=== PATIENT | male | born 1955 | race Caucasian/White ===

== ENCOUNTER 2016-04-19 10:44 | Outpatient (CLI) | payer MEDICAID ==
[~2016-04-19] VITALS: Ht 190.5 cm; Wt 91.8 kg
--- NOTE | ~2016-04-19 | HEMODYNAMI ---
PATIENT:CHRIS HALL MEDICAL RECORD: [id number] : 55 LOCATION:[facility] ADMISSION DATE: 04/19/16 Generatedon:04/19/201614:20 Patient name: CHRIS HALL Patient #: [id number] : 1955 Date of study: 04/19/2016 Page: Of Hemodynamic Procedure Report Patient Data Patient Demographics Procedure consent was obtained First Name: CHRIS Gender: Male Last Name: RAFAEL : 1955 Middle Initial: R Age: 61 year(s) Patient #: [id number] Race: SSN: [id number] Additional ID: [id number] Contact details Address: [address] [place] [address] State: [place] City: [facility] Zip code: [address] Past Medical History Allergies: No known allergies Admission Admission Data Admission Date: 04/19/2016 Admission Time: 10:44 Lab Results Lab Result Date: 04/19/2016 Lab Result Time: 0:00 Biochemistry Name Units Result Min Max BUN mg/dl 20 --(----)*- 7 18 Creatinine mg/dl 1.1 --(--*-)-- 0.6 1.3 CBC Name Units Result Min Max Hemoglobin g/dl 15.2 --(-*--)-- 13.5 17.5 Procedure Procedure Types Cath Procedure PCI Procedure Coronary Stent Initial Procedure Description Procedure Date Procedure Date: 04/19/2016 Procedure Start Time: 14:06 Procedure End Time: 14:16 Procedure Staff Name Function Yunior Olsen MD Performing Physician Brynn Mckeon RT Scrub Nicky Cabrera RN Nurse Raul Skaggs RT Butcher [employer] Vick Morales RT Monitor Procedure Data Cath Procedure Fluoroscopy Diagnostic fluoroscopy Total fluoroscopy Time: 1.8 time: 1.8 min min Diagnostic fluoroscopy Total fluoroscopy dose: 212 dose: 212 mGy mGy Contrast Material Contrast Material Type Amount (ml) Isovue 300 39 Entry Location Entry Primary Successful Side Size Upsize Upsize Entry Closure Succes sful Closure Location (Fr) 1 (Fr) 2 (Fr) Remarks Device Remarks Femoral Left 6 Fr Exoseal artery Short Procedure Complications No complications Procedure Medications Medication Administration Route Dosage Oxygen NC 2 l/min Heparin Flush Bag added to field 2 bags (1000units/500ml NS) Lidocaine 2% added to field 20 Benadryl I.V. 50 mg Versed I.V. 1 mg Fentanyl I.V. 50 mcg Versed I.V. 1 mg Fentanyl I.V. 50 mcg Heparin Bolus I.V. 5000 units Versed I.V. 1 mg Hemodynamics Rest HGB: 15.2 (g/dl) Heart Rate: 72 (bpm) Snapshots Pre Cath Intra NCS Post Cath Vital Signs Time Heart Resp SPO2 NIBP (mmHg) Rhythm Pain Sedation Rate (ipm) (%) Status Level (bpm) 13:51:36 73 16 99 143/94(125) NSR 0 (11) 10(A) , No pain 13:55:50 74 15 100 134/97(119) NSR 0 (11) 10(A) , No pain 14:00:00 75 16 99 139/94(127) NSR 0 (11) 10(A) , No pain 14:04:16 71 15 96 131/81(108) NSR 0 (11) 9(A) , No pain 14:08:26 69 15 96 120/88(101) NSR 0 (11) 9(A) , No pain 14:12:34 77 15 98 133/83(109) NSR 0 (11) 9(A) , No pain 14:14:34 77 16 96 126/75(95) NSR 0 (11) 9(A) , No pain Medications Time Medication Route Dose Verified Delivered Reason Notes Effectiveness by by 13:51:33 Oxygen NC 2 Yunior Nicky Per physician l/min [facility] Cabrera RN, MD 13:51:41 Heparin Flush added 2 Yunior Yunior used for Bag to bags [facility] procedure (1000units/500ml field MD SALDANA NS) 13:51:48 Lidocaine 2% added 20ml Yunior Browneory used for to [facility] procedure field MD SALDANA 13:51:56 Benadryl I.V. 50 mg Yunior Nicky Per physician [facility] Cabrera RN, MD 14:00:11 Versed I.V. 1 mg Yunior Nicky for sedation [facility] Cabrera RN, MD 14:00:17 Fentanyl I.V. 50 Yunior Nicky for sedation mcg [facility] Cabrera RN, MD 14:02:39 Versed I.V. 1 mg Yunior Nicky for sedation [facility] Cabrera RN, MD 14:02:43 Fentanyl I.V. 50 Yunior Nicky for sedation mcg [facility] Cabrera RN, MD 14:04:10 Versed I.V. 1 mg Yunior Nicky for sedation [facility] Cabrera RN, MD 14:06:48 Heparin Bolus I.V. 5000 Yunior Nicky for dose units [facility] Cabrera RN anticoagulation verified MD david patel Procedure Log Time Note 13:37:35 Raul Skaggs RT(R) sent for patient. Start room use. 13:41:47 Time tracking: Regular hours 13:41:52 Plan of Care:Hemodynamics will remain stable., Cardiac rhythm will remain stable., Comfort level will be maintained., Respiratory function will remain adequate., Patient/ family verbilizes understanding of procedure., Procedure tolerated without complication., Recovers from procedure without complications.. 13:41:58 Patient received from Outpatients to [facility] Alert and oriented. Tansferred to table in Supine position. 13:41:59 Warm blankets applied, and hu hugger turned on for patient comfort. 13:42:00 Correct patient and procedure confirmed by team. 13:42:02 Signed procedure consent form obtained from patient. 13:42:02 ECG and BP/O2 sat monitors applied to patient. 13:42:03 Full Disclosure recording started 13:50:20 Vital chart was started 13:51:33 Oxygen 2 l/min NC was given by Nicky Cabrera RN; Per physician; 13:51:41 Heparin Flush Bag (1000units/500ml NS) 2 bags added to field was given by Yunior Olsen MD; used for procedure; 13:51:48 Lidocaine 2% 20ml vial added to field was given by Yunior Olsen MD; used for procedure; 13:51:56 Benadryl 50 mg I.V. was given by Nicky Metcalfe RN; Per physician; 13:55:52 Vick Morales RT(R) was relieved by Raul Skaggs RT(R) as monitoring person 13:56:15 Baseline sample Acquired. 13:56:18 Rhythm: sinus rhythm 13:56:26 H&P Date Dictated: 04/19/2016 Within 30 days and on chart., H&P Addendum completed by physician on day of procedure. (MUST COMPLETE FOR ALL OUTPATIENTS). 13:56:27 Pre-procedure instructions explained to patient. 13:56:27 Pre-op teaching completed and patient verbalized understanding. 13:56:29 Family in waiting room. 13:56:30 Patient NPO since Midnight. 13:56:40 Patient allergic to No known allergies 13:56:42 Is the patient allergic to Iodine/contrast media? No. 13:56:47 Is patient on blood thinner?Yes 13:56:50 ACC The patient was administered the following blood thiners within the last 24 hours: ACCPlavix 13:56:52 Patient diabetic? No. 13:56:54 ----Pre-sedation anethsthesia assessment.---- 13:56:56 Previous problem with sedation/anesthesia? No ? 13:56:57 Snore? Yes 13:56:58 Sleep apnea? No 13:56:59 Deviated septum? No 13:57:00 Opens mouth fully? Yes 13:57:04 Sticks out tongue? Yes 13:57:10 Airway obstruction? N/A ? 13:57:12 Airway obstruction? No ? 13:57:14 Dentures? No ? 13:57:18 Pre procedure: left dorsailis pedis pulse 1+ Palpable, but thready & weak; easily obliterated 13:57:21 Patient pain scale 0/10 ?. 13:57:29 IV patent on arrival in left wrist with 0.9% NaCl at 10ml/hr. 13:58:53 Left groin area was prepped with chlora-prep and draped in sterile fashion 13:58:54 Alarms reviewed by R. N. 13:58:54 Sharps counted by scrub and verified by R.N. 13:59:22 Lab Result : Creatinine 1.1 mg/dl 13:59:22 Lab Result : BUN 20 mg/dl 13:59:22 Lab Result : Hemoglobin 15.2 g/dl 13:59:27 --------ALL STOP TIME OUT------ 13:59:28 Final Timeout: patient, procedure, and site verified with staff and physician. All members of the team are in agreement. 13:59:30 Left groin site verified by team. 13:59:33 Physical assessment completed. ASA score P 2 - A patient with mild systemic disease as per Yunior Olsen MD. 13:59:37 Sedation plan: IV Moderate Sedation Versed, Fentanyl 14:00:11 Versed 1 mg I.V. was given by Nicky Cabrera RN; for sedation; 14:00:17 Fentanyl 50 mcg I.V. was given by Nicky Cabrera RN; for sedation; 14:02:39 Versed 1 mg I.V. was given by Nicky Cabrera RN; for sedation; 14:02:43 Fentanyl 50 mcg I.V. was given by Nicky Cabrera RN; for sedation; 14:02:55 Zero performed for pressure channel P1 14:04:10 Versed 1 mg I.V. was given by Nicky Cabrera RN; for sedation; 14:04:47 Use device set Femoral PCI 14:05:09 Acist Syringe opened to sterile field. 14:05:09 Acist Hand Control opened to sterile field. 14:05:10 Bag Decanter opened to sterile field. 14:05:10 Cardinal Cath Pack opened to sterile field. 14:05:11 Terumo 6Fr [place] Sheath opened to sterile field. 14:05:12 St Ammon 260cm J .035 wire opened to sterile field. 14:05:12 Merit BasixCompak Inflation Kit opened to sterile field. 14:05:13 Acist Manifold opened to sterile field. 14:05:13 Tegaderm 4 x 4 opened to sterile field. 14:05:15 Mejia Whisper J 300cm 0.014 guide wire opened to sterile field. 14:05:15 Medtronic Launcher 6Fr MB 1 guide catheter opened to sterile field. 14:05:18 Procedure started. 14:06:10 Local anesthetic to left femerol artery with Lidocaine 2% by Yunior Olsen MD.INITIAL ACCESS ONLY 14:06:16 A 6 Fr Short sheath was inserted into the Left Femoral artery 14:06:48 Heparin Bolus 5000 units I.V. was given by Nicky Cabrera RN; for anticoagulation; dose verified wtih dr patel 14:06:54 6 Fr MB1 guide catheter was inserted over the wire 14:08:33 WHISPER wire advanced. 14:08:44 ACC PCI Site: mRCA has 90% stenosis. 14:08:46 ACC Pre-intervention YOLANDA Flow is 3. 14:10:58 Inflation Number: 1 A [employer]tronic Integrity 3.0 X 18 stent was prepped and advanced across the Prox RCA. The stent was deployed at 12 FRITZ for 0:34 (min:sec). 14:11:19 Stent catheter was removed intact over wire. 14:11:20 Wire removed. 14:11:21 Guide catheter removed. 14:11:27 Contrast amount:Isovue 300 39ml. 14:11:41 Cordis 6Fr Exoseal opened to sterile field. 14:12:39 Sheath removed intact; hemostasis achieved with Exoseal to the Left Femoral artery. 14:12:41 Procedure ended.(Physican Out) 14:12:50 Fluoroscopy time 01.80 minutes. 14:12:55 Fluoroscopy dose: 212 mGy 14:12:55 Flurop Dose total: 212 14:12:56 Sharps counted by scrub and verified by R.N. 14:12:57 Insertion/operative site no bleeding no hematoma. 14:13:00 Post-op/insertion site Left Femoral artery dressed using a 4 x 4 and Tegaderm. 14:13:05 Post left femerol artery:stable 14:13:06 Post Procedure Pulses reassessed and unchanged 14:13:10 Post procedure: left dorsailis pedis pulse 1+ Palpable, but thready & weak; easily obliterated. 14:13:14 Post procedure rhythm: sinus rhythm 14:13:15 Post procedure instruction explained to patient.Patient verbalizes understanding. 14:14:01 Procedure and supply charges have been captured, reviewed, submitted and are correct. 14:14:05 Procedure Complication : No complications 14:15:47 Vital chart was stopped 14:15:47 See physician's report for complete and final results. 14:15:54 Report given to Post Procedure Room. 14:16:45 Patient transfered to Post Procedure Room with Stretcher. 14:16:46 Procedure ended. 14:16:46 Full Disclosure recording stopped 14:16:55 End room use (Document Last) Intervention Summary Intervention Notes Time ActionType Lesion and Equipment Action# Pressure Duration Attributes Used 14:10:58 Place stent Prox RCA Medtronic 1 12 00:34 Integrity 3.0 X 18 stent Device Usage Item Name Manufacture Quantity Catalog Hospital Part Current Minimal Lot# / Number Charge Number Stock Stock Serial# Code Acist Acist 1 21133 772355 815317 643845 20 Syringe Medical Systems Inc Acist Hand Acist 1 24672 840742 436754 329109 5 Control Medical Systems Inc Bag Microtek 1 2002S 792424 42999 116670 5 DecPMW Technologies Medical Inc. Cardinal Cardinal 1 [id number] 140860 18198 789758 5 Lalalama Pack Health Terumo 6Fr Terumo 1 GLR489 051432 496991 209049 [address] St Ammon 1 636572 451963 491682 000949 30 260cm J .035 wire Merit Merit 1 [id number] 260761 894360 491427 15 BasixCompak Medical Inflation Kit Acist Acist 1 66577 950150 239101 649701 5 Manifold Medical Systems Inc Tegaderm 4 3M 1 1626W 542686 251717 776986 5 x 4 Mejia Mejia 1 [id number] 836267 906374 896432 5 Whisper J Vascular 300cm 0.014 guide wire Medtronic Medtronic 1 [id number] 522906 92334 462354 1 Launcher 6Fr MB 1 guide catheter Medtronic Medtronic 1 [id number] 245847 832803 337682 9 [id number] Integrity 3.0 X 18 stent Cordis 6Fr Cardinal 1 EX600 535500 000117 331402 10 Farmainstant Signature Audit [place] Stage Time Signature Unsigned Intra-Procedure 04/19/2016 Vick Morales 2:20:23 PM RT(R) Signatures Monitor : Vick Morales RT Signature : Date : Time : [facility] [address] [place] [id number]
[~2016-04-19 10:44] MED LIST: PRAVACHOL40 MG PO; ZESTRIL20 MG PO
[2016-04-19 11:07] LABS: BASOPHILS 0.3 % (0.0-2.0); EOSINOPHILS 2.6 % (0-7); HEMATOCRIT 45.7 % (42.0-54.0); HEMOGLOBIN 15.2 g/dL (13.5-17.5); IMMATURE GRANULOCYTES 0.2 % (0-5); LYMPHOCYTES 29.2 % (15-50); MCH 31.5 pg (26.0-34.0); MCHC 33.3 g/dL (31.0-37.0); MCV 94.6 fL (80.0-100.0); MEAN PLATELET VOLUME 10.5 fL (7.4-10.4); MONOCYTES 8.2 % (2-11); NEUTROPHILS 59.5 % (40-80); RBC 4.83 10x6/uL (4.20-6.10); WBC 6.6 10x3/uL (4.8-10.8)
[2016-04-19 11:11] LABS: PLATELET COUNT 148 10x3/uL (130-400)
[2016-04-19 11:19] VITALS: Ht 190.5 cm; Wt 91.8 kg
[2016-04-19 11:20] LABS: ANION GAP 8.9 mmol/L (8-16); CALCIUM 9.4 mg/dL (8.5-10.1); CARBON DIOXIDE 30.3 mmol/L (21.0-32.0); CREATININE - SERUM 1.1 mg/dL (0.6-1.3); POTASSIUM - SERUM 4.2 mmol/L (3.5-5.1)
[2016-04-19] MEDS ORDERED: PLAVIX75 MG PO (11:28)
--- NOTE | 2016-04-19 11:31 | NUR ---
RIGHT GROIN AREA WITH SMALL AMOUNT OF BRUISING.
--- NOTE | 2016-04-19 14:57 | NUR ---
LYING FLAT, ROOM AIR, VITALS ALL WNL. NSR RATE 65 WNO C/O CHEST PAIN. PULSES PALP X 4. L GROIN C/D/I WITH NO HEMATOMA OR BLEEDING. WILL MONITOR CLOSELY.
--- NOTE | 2016-04-19 15:22 | NUR ---
1505 CONTINUES TO SLEEP, ROOM AIR WITH NO DISTRESS. NSR RATE 66 W NO C/O CHEST PAIN. PULSES PALP X 4. L GROIN 6F EXOSEAL C/D/I WITH NO HEMATOMA OR BLEEDING. NO FAMILY AT BEDSIDE.
--- NOTE | 2016-04-19 15:39 | NUR ---
1530 REPORT CALLED TO MONSERRAT RAMOS RN OPS. TRANSFERRED TO ROOM 2510 VIA STRETCHER. ALL BELONGINGS IN TOW AND FAMILY AT SIDE. L GROIN 6F EXOSEAL C/D/I WITH NO HEMATOMA OR BLEEDING. ALL VITALS WNL.
--- NOTE | 2016-04-21 14:44 | OP ---
PATIENT NAME: CHRIS HALL MEDICAL RECORD: [id number] :55 LOCATION:D.[facility] ADMISSION DATE: SURGEON: JENNI CERDA MD DATE OF OPERATION: 04/19/2016 PTCA Stent Report For catheterization report, please see report dictated previously. DESCRIPTION OF PROCEDURE: ____ was placed into the left femoral artery, ____ guide catheter provided excellent guide catheter support followed by a 300 cm Ennis XT wire was placed across the tightly occluded right down this portion of vessel. Stent deployed was a 3.0 x 18 mm Integrity nondrug-eluting stent inflated to 14 atmospheres for 45 seconds. Final injection shows excellent resolution of 80% stenosis, no significant residual. YOLANDA flow was 3 throughout the procedure. Sheath was closed with ExoSeal device. The patient was previously on Plavix. TRANSINT:[id number] Voice Confirmation ID: [id number] DOCUMENT ID: [id number] JENNI CERDA MD at 1444 CC: [id number] DICTATION DATE: 04/19/16 1419 CHAIN BUILDER LOOM CONTROL: 04/19/16 1440 DEP CLI 04/19/16 [place] [address] [place] [address]
== END 2016-04-19 18:30 | disposition home or self-care (01) ==
LOC: D.CATH 10:44
PROVIDERS: Internal Medicine Interventional Cardiology
DX: I25.10 Atherosclerotic heart disease of native coronary artery without angina pectoris (principal); Z95.5 Presence of coronary angioplasty implant and graft

== ENCOUNTER 2019-07-01 06:59 | Outpatient (CLI) | payer MEDICARE ==
[~2019-07-01] VITALS: Ht 190.5 cm; Wt 80.9 kg
[~2019-07-01 06:59] MED LIST changes: +PLAVIX75 MG PO; +ZETIA10 MG PO
[2019-07-01 07:30] LABS: APTT 26.5 SECONDS (22.8-39.4); PROTIME 13.2 SECONDS (11.6-15.0)
[2019-07-01 07:33] LABS: ANION GAP 10.5 mmol/L (8-16); CARBON DIOXIDE 28.9 mmol/L (21.0-32.0); CREATININE - SERUM 1.1 mg/dL (0.6-1.3); POTASSIUM - SERUM 4.4 mmol/L (3.5-5.1)
[2019-07-01 08:12] LABS: BASOPHILS 0.5 % (0-2); EOSINOPHILS 3.9 % (0-7); HEMATOCRIT 41.6 % (42.0-54.0); HEMOGLOBIN 13.6 g/dL (13.5-17.5); IMMATURE GRANULOCYTES 0.2 % (0-5); LYMPHOCYTES 10.8 % (15-50); MCH 30.6 pg (26.0-34.0); MCHC 32.7 g/dL (31.0-37.0); MCV 93.5 fL (80.0-100.0); MONOCYTES 11.7 % (2-11); NEUTROPHILS 72.9 % (40-80); PLATELET COUNT 259 10x3/uL (130-400); RBC 4.45 10x6/uL (4.20-6.10); RDW 14.3 % (11.5-14.5); WBC 8.7 10x3/uL (4.8-10.8)
[2019-07-01 08:32] VITALS: Ht 190.5 cm; Wt 80.9 kg
--- NOTE | 2019-07-01 10:11 | NUR ---
1009 SEE POST PROCEDURE CHECKLIST FOR VITAL SIGN TRENDS.
--- NOTE | 2019-07-01 10:16 | NUR ---
1015 FL DIET SERVED.
--- NOTE | 2019-07-01 10:24 | NUR ---
1020 SITTING UP EATING FL DIET WITHOUT PROBLEMS, DRESSING CDI NO HEMATOMA. DENIES NEEDS.
--- NOTE | 2019-07-01 10:53 | NUR ---
1050 DENIES NEEDS, WATCHING TV. DRESSING WITHOUT BLEEDING NOR HEMATOMA.
== END 2019-07-01 11:55 | disposition home or self-care (01) ==
LOC: D.CT 06:59
PROVIDERS: General Practice; ATTEND Surgery
DX: I88.0 Nonspecific mesenteric lymphadenitis (principal); E78.5 Hyperlipidemia, unspecified; I10 Essential (primary) hypertension; I25.10 Atherosclerotic heart disease of native coronary artery without angina pectoris

== ENCOUNTER 2019-07-19 05:15 | Day surgery (SDC) | payer MEDICARE ==
[~2019-07-19] VITALS: Ht 190.5 cm; Wt 89.8 kg
--- NOTE | ~2019-07-19 | OP ---
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 3. Malignant ascites. 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 3. Malignant ascites. 4. Gastric mass near the GE junction. PROCEDURE: 1. Right subclavian vein port placement. 2. Fluoroscopic interpretation. 3. EGD with biopsy. SURGEON: Jerry Christina MD REPORT OF PROCEDURE: The patient's chest was prepped and draped in sterile fashion. A needle was used to cannulate the right subclavian vein and a guidewire was advanced with ease. Fluoro was used to note that the wire was in good position in the venous system. A skin incision was made on the right superolateral chest and a subcutaneous pouch was made over the pectoral fascia. The catheter was tunneled between this pouch and the wire exit site. The port was then sutured to the pectoral fascia with interrupted 3-0 Prolenes times 2. The catheter was then cut with a beveled tip at 20 cm. The dilator trocar device placed over the wire and the wire and dilator were removed. The catheter tip was advanced through the trocar and the trocar was then removed. The catheter tip was noted to be resting in good position near the right atrial superior vena caval junction. The catheter aspirated nonpulsatile dark blood and flushed easily with heparinized saline. The subcutaneous tissues were reapproximated with interrupted 3-0 Vicryl and the skin incisions were closed with subcutaneous 5-0 Monocryl. This wound was then dressed appropriately. An Olympus endoscope was advanced through the patient's mouth and esophagus. We were able to pass into the patient's stomach and out through the pylorus into the third portion of the duodenum. The duodenum appeared to be normal with no masses, lesions or ulcerations. As we pulled the scope back, the pylorus of the stomach appeared normal with no signs of any inflammation, masses or lesions. Retroflexed view of the stomach showed we had poor expansion of the stomach proximally, but there was a fungating type mass present near the GE junction that was quite large in size. This mass was firm. Biopsies were taken of this mass and sent off for permanent specimen. The mass itself was at least 5 cm in greatest diameter and encompass maybe 25% of the stomach in that GE junction area. As we pulled the scope back, we could see that this mass extended up past the GE junction to feel the Z-line was. There was a lot of inflammatory changes to the distal esophagus. Due to having full expansion of the stomach, it was difficult to see if the patient had a hiatal hernia. At this point, the insufflation was removed, then we slowly backed the camera out. There were no other masses, lesions or ulcerations noted throughout the patient's esophagus: At that point, the scope was completely removed. OPERATIVE REPORT [id number] CHRIS HALL COMPLICATIONS: None. CONDITION: Stable. ANESTHESIA: General endotracheal. BLOOD LOSS: Minimal. TRANSINT:[id number] Voice Confirmation ID: [id number] DOCUMENT ID: [id number] JERRY CHRISTINA MD CC: EZE URBINA MD [id number] DICTATION DATE: 07/19/19 0859 PANEL WIRER: 07/19/19 1414 [facility] 07/19/[address] [facility] [address] [place] [address]
[2019-07-19 05:38] LABS: BASOPHILS 0.3 % (0-2); HEMATOCRIT 42.6 % (42.0-54.0); HEMOGLOBIN 13.5 g/dL (13.5-17.5); IMMATURE GRANULOCYTES 0.3 % (0-5); LYMPHOCYTES 7.9 % (15-50); MCH 29.8 pg (26.0-34.0); MCHC 31.7 g/dL (31.0-37.0); MEAN PLATELET VOLUME 9.2 fL (7.4-10.4); MONOCYTES 8.9 % (2-11); NEUTROPHILS 81.6 % (40-80); PLATELET COUNT 307 10x3/uL (130-400); RBC 4.53 10x6/uL (4.20-6.10); RDW 14.3 % (11.5-14.5); WBC 10.8 10x3/uL (4.8-10.8)
[2019-07-19 05:41] LABS: APTT 27.7 SECONDS (22.8-39.4); INR 1.08 (0.85-1.17); PROTIME 13.9 SECONDS (11.6-15.0)
[2019-07-19 06:15] VITALS: BP 103/69; Ht 190.5 cm; Wt 89.8 kg
[2019-07-19] MEDS ORDERED: HYDROCODON-ACE1 EA10 PO (08:45)
--- NOTE | 2019-07-19 09:12 | NUR ---
0905-REC'D FROM RR. AWAKE AND ALERT,VSS. DRESSING TO RIGHT CHEST CDI. DENIES PAIN. REVIEWED DISCHARGE CRITERIA. CL IN EASY REACH
--- NOTE | 2019-07-19 09:30 | NUR ---
0914-FULL LIQUID TRAY TO ROOM.
--- NOTE | 2019-07-19 13:15 | NUR ---
1045-DISCHARGE CRITERIA MET. IV REMOVED WITH CATH INTACT.DISPOSED INTO SHARPS.COVERED SITE WITH GUAZE,SECURED WITH MEDIPORE TAPE. REVIEWED POST OPERTATIVE INSTRUCTIONS. VERBALIZED UNDERSTANDING. ESCORTED OUT VIA W/C WITH SPOUSE AWAITING TO DRIVE HOME
== END 2019-07-19 10:45 | disposition home or self-care (01) ==
LOC: D.OPS 05:15 → D.PAN 07:30 → D.OPS 10:45
PROVIDERS: Anesthesiology; ATTEND Surgery
DX: C80.1 Malignant (primary) neoplasm, unspecified (principal); R18.0 Malignant ascites; C80.0 Disseminated malignant neoplasm, unspecified